=== PATIENT | male | born 1995 | race African-American/Black ===

== ENCOUNTER 2025-01-25 19:41 | Emergency (ER) | payer MEDICAID ==
[~2025-01-25] VITALS: Ht 172.7 cm; Wt 104.5 kg
[2025-01-25] MEDS: ibuprofen tablet 400 MG TABLET PO ONE (22:00)
--- NOTE | 2025-01-25 22:57 | RADIOLOGY REPORT ---
CLINICAL INDICATION: Pain RIGHT TECHNIQUE: 6 views of the right foot and ankle. Comparison: None FINDINGS/IMPRESSION: There is no evidence of acute fracture or dislocation. Soft tissues are unremarkable.
--- NOTE | 2025-01-25 23:12 | Physician Documentation ---
History of Present Illness ~ Chief Complaint: Ankle pain Stated Complaint: FOOTPAIN Time Seen by MD: 21:26 Primary Medical Doctor: [facility] HPI Patient is a 29-year-old male that presents to the emergency department for complaints of right-sided foot and ankle pain. Patient reports that this pain is chronic lasting weeks to several months. Patient denies any significant increase in his pain currently but wanted to come to have it evaluated today. Patient denies any traumatic event or known injury to his right foot or ankle. Patient denies any other concerns at this time. Tetanus witin 5 years: No Medication Reconciliation Allergies: Uncoded Allergies: SLUFER DRUGS (Allergy, Unknown, rash, 01/25/25) Past Medical History Past Medical History: Chronic Pain Past Surgical History: no surgical history Alcohol Use: None Drug Use: none Lives with: Family Lives In: Home Review of Systems ROS As stated above in the HPI, otherwise all systems are reviewed and negative. Physical Exam Vital Signs: Temperature: 98.0, Heart Rate: 92, Respiratory Rate: 16, BP: 123/95, Pulse Oximetry: 98, Weight: 104.550 Oxygen Flow Rate: 0 Physical Exam VITALS: Reviewed and as above. GENERAL: Alert, no apparent distress. HEENT: Normocephalic, atraumatic, PERRL, EOMI, dry mucosa, no erythema RESPIRATORY: Lungs clear, normal breath sounds, no respiratory distress. CHEST: No accessory muscle use, no retractions CV: Regular rate, rhythm, no edema, no murmur, No: JVD GI: Soft, non-tender, bowels sounds present, no rebound, guarding, or rigidity BACK: No CVA tenderness, or swelling MUSCULOSKELETAL No deformities, pain with examination to right ankle inability to complete range of motion during examination. 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 Ankle, Complete(3vw Min) (01/25/25 22:41) Foot, Complete (3vw Min) (01/25/25 22:41) Completed Orders - SONIA POLLOCK [employer]LLING FIELD OPERATOR Ankle, Complete(3vw Min) (01/25/25 22:41) Foot, Complete (3vw Min) (01/25/25 22:41) Ibuprofen Tablet (Motrin Tablet) (01/25/25 21:50) Acetaminophen 325mg Tablet (Tylenol Tabl (01/25/25 21:50) Medications Received in ER Medications (Trade) Dose Ordered Sig/Gaye Route PRN Reason Start Time Stop Time Status Last Admin Dose Admin (Motrin tablet) 800 mg ONCE ONCE PO 01/25/25 21:50 01/25/25 21:51 DC 01/25/25 22:00 800 MG (Tylenol tablet) 650 mg ONCE ONCE PO 01/25/25 21:50 01/25/25 21:51 DC 01/25/25 22:00 650 MG Vital Signs 01/25/25 19:51 Temp 98.0 Pulse 92 Resp 16 B/P (MAP) 123/95 Pulse Ox 98 O2 Flow Rate 0 Medical Decision Making Findings The Pt was found to be negative for any fractures or dislocation at this time. Pain consistent with soft tissue injury. The Pt is otherwise well appearing, hemodynamically stable, and shows no evidence of neurovascular injury or compartment syndrome. Patient was placed in the supine and will follow up with PMD for ortho referal if symptoms persist. Patient will follow up with primary care provider. Return to the emergency department if there is any worsening of his current symptoms or any additional concerning symptoms that we discussed here today. Swelling increased pain inability to bear weight on that ankle or any other concerning symptoms. Rest ice elevation as tolerated. Tylenol ibuprofen for discomfort. General Diff Dx:Considerations: Include: Abrasion, Contusion, Fracture, Hematoma, Laceration, Malunion, Neurovascular injury, Open fracture, Sprain, Ulcer, Other Ankle Diff Dx:Considerations: Include: Abrasion, Arthritis, Contusion, DJD, Fracture-metatarsal, Fracture-fibula, Fracture-tarsal, Fracture-tibia, Gout, Hematoma, Laceration, Malunion, Neurovascular injury, Nonunion, Open fracture, Osteomyelitis, Rheumatoid arthritis, Sprain, Septic, Ulcer, Other Foot Diff Dx:Considerations: Include: Abrasion, Arthritis, Cellulitis, Contusion, Dislocation, DJD, Fracture-metatarsal, Fracture-phalynx, Fracture- tarsal, Gout, Hematoma, Ingrown toenail, Laceration, Malunion, Neurovascular injury, Open fracture, Paronychia, Puncture, Rheumatoid, Sprain, Septic, Subungual hematoma, Ulcer, Other Departure Disposition: HOME / SELF CARE / HOMELESS Impression: Primary Impression: Sprain of ankle Additional Impressions: Pain Right ankle pain Right foot pain Discharge Instructions: Ankle Pain, Ankle Sprain Additional Instructions: The Pt was found to be negative for any fractures or dislocation at this time. Pain consistent with soft tissue injury. The Pt is otherwise well appearing, hemodynamically stable, and shows no evidence of neurovascular injury or compartment syndrome. Patient was placed in the supine and will follow up with PMD for ortho referal if symptoms persist. Patient will follow up with primary care provider. Return to the emergency department if there is any worsening of his current symptoms or any additional concerning symptoms that we discussed here today. Swelling increased pain inability to bear weight on that ankle or any other concerning symptoms. Rest ice elevation as tolerated. Tylenol ibuprofen for discomfort. Referrals: NO PRIMARY CARE PROVIDER (PCP) Education Educated: Patient Educated regarding: diagnosis, treatment, need for follow up Signature Scribe Signature: A Attestation: Scribed for Sonia Pollock by ONEIDA Escalante . 01/25/25 23:13 SONIA POLLOCK Jan 25, 2025 23:12
[2025-01-25 23:34] VITALS: BP 122/94; PULSE 90; RESP 18; TEMP 98.6; O2SAT 99
== END 2025-01-25 23:35 | disposition home or self-care (01) ==
LOC: ER 19:42
DX: S93.401A Sprain of unspecified ligament of right ankle, initial encounter (principal); X58.XXXA Exposure to other specified factors, initial encounter; Y93.89 Activity, other specified; Y92.89 Other specified places as the place of occurrence of the external cause; Y99.8 Other external cause status
CPT/HCPCS: 73610; 73630; 99284